=== PATIENT | female | born 1985 | race African-American/Black ===

== ENCOUNTER 2021-01-02 11:05 | Outpatient (REF) | payer OTHER, MEDICAID, SELFPAY | END 2021-01-02 11:06 | disposition home or self-care (01) | LOC: HO.LAB 11:05 | PROVIDERS: Visit Provider Nurse Practitioner Family | DX: N39.0 Urinary tract infection, site not specified (principal); R30.0 Dysuria | CPT/HCPCS: 87086; 87088; 87186 ==

== ENCOUNTER 2022-04-14 14:28 | Outpatient (REF) | payer OTHER, MEDICAID, SELFPAY ==
[2022-04-14 17:32] LABS: Influenza A PCR NEGATIVE (Negative); Influenza B PCR NEGATIVE (Negative); Resp Syncy Virus RNA Qual PCR POSITIVE (Negative); SARS COV2 PCR INHOUSE NEGATIVE (Negative)
== END 2022-04-14 14:29 | disposition home or self-care (01) ==
LOC: HO.LAB 14:28
PROVIDERS: Visit Provider Nurse Practitioner Family
DX: Z20.822 Contact with and (suspected) exposure to COVID-19 (principal); R52 Pain, unspecified
CPT/HCPCS: 0241U

== ENCOUNTER 2023-02-22 14:26 | Outpatient (AMB) | payer SELFPAY ==
--- NOTE | 2023-02-22 15:04 | AM.OFFWIN_ITS ---
Intake Vital Signs 02/22/23 15:06 Weight 133 lb BP 92/54 L Blood Pressure Location Lt brachial Position Sitting Pulse 92 Pulse Source Pulse Oximeter Temp 99.4 F Temp Source Oral Pulse Oximetry (%) 98 Oxygen Delivery Method Room Air Intake Visit Reasons: EST/headaches Intake Note: Patient here for headaches, she states its mainly in the front, she feels weak and tired and temp has been high and low, nausea which all started yesterday. Patient Tobacco Use Status: Never used Tobacco Allergies No Known Allergies Allergy (Verified 02/22/23 15:34) Medication List - Last Reconciled 02/22/23 by Davion Crawford MD No Known Home Meds Do you need a note to return to daycare/school/sports/work: Yes HPI EST/headaches HPI Details Patient presents for a sick visit. Reporting symptoms of sinus congestion, sore throat and difficulty swallowing. Low-grade fever. No family member is sick. No recent travel. Patient reports symptoms of malaise and fatigue. [facility] Social History Patient Tobacco Use Status: Never used Tobacco Physical Exam Vital Signs: Last Vital Signs Temp 99.4 F 02/22/23 15:06 Pulse 92 02/22/23 15:06 BP 92/54 L 02/22/23 15:06 Pulse Ox 98 02/22/23 15:06 Oxygen Delivery Method Room Air 02/22/23 15:06 Const General: cooperative and healthy appearing Nutritional Appearance: well nourished Orientation/consciousness: patient oriented x3 Limitations: no limitations HEENT Head: Yes normal to inspection Eyes General: appearance normal, both eyes and all related structures Neck Neck: Yes normal visual inspection Chest Chest palpation & inspection: normal palpation of entire chest wall Resp Effort & Inspection: normal respiratory effort Neuro General: patient oriented x3 Assessment & Plan Assessment & Plan (1) Upper respiratory tract infection: Code(s): J06.9 - Acute upper respiratory infection, unspecified Qualifiers: Pharyngitis/tonsillitis etiology: unspecified etiology URI type: acute pharyngitis Qualified Code(s): J02.9 - Acute pharyngitis, unspecified Plan: Increase fluid intake. Tylenol for aches and pains. If symptoms worsen, follow-up here for a recheck. No antibiotics needed. Note for work given. Orders: Orders SARS-CoV2/FLU/RSV Today R43.9 - Unspecified disturbances of smell and taste Coding Level of Care Code Est Pt Level 3 (54316) Diagnoses Acute pharyngitis, unspecified etiology J02.9 Pharyngitis/tonsillitis etiology: unspecified etiology URI type: acute pharyngitis
[2023-02-22 15:06] VITALS: BP 92/54; PULSE 92; TEMP 37.4; O2SAT 98
== END 2023-02-22 15:50 | disposition home or self-care (01) ==
PROVIDERS: Visit Provider Internal Medicine
DX: J02.9 Acute pharyngitis, unspecified (principal)
CPT/HCPCS: 99213

== ENCOUNTER 2023-02-22 18:24 | Outpatient (REF) | payer OTHER, MEDICAID, SELFPAY ==
[2023-02-22 19:44] LABS: Influenza A PCR NEGATIVE (Negative); Influenza B PCR NEGATIVE (Negative); Resp Syncy Virus RNA Qual PCR NEGATIVE (Negative); SARS COV2 PCR INHOUSE POSITIVE (Negative)
== END 2023-02-22 18:25 | disposition home or self-care (01) ==
LOC: HO.LNP 18:24
PROVIDERS: Visit Provider Internal Medicine
DX: Z20.822 Contact with and (suspected) exposure to COVID-19 (principal); R43.9 Unspecified disturbances of smell and taste
CPT/HCPCS: 0241U